=== PATIENT | female | born 1995 | race Two or more races ===

== ENCOUNTER 2016-10-16 11:06 | Inpatient (IN) | payer OTHER ==
[~2016-10-16] VITALS: Ht 160 cm; Wt 64.0 kg
[2016-10-20] MEDS ORDERED: LIDOCAINE 1%, 20ML ONE (07:06)
[2016-10-20] MEDS ORDERED: NEWBORN KIT ONE (07:06)
[2016-10-20] MEDS ORDERED: IBUPROFEN 600 MG TABLET ONE (07:06)
[2016-10-20] MEDS ORDERED: OXYTOCIN 30U/ 0.9% NaCL 500ML 500 ML ONE (07:06)
[2016-10-20] MEDS ORDERED: MISOPROSTOL 200 MCG TABLET ONE (07:06)
[2016-10-20] MEDS ORDERED: OXYTOCIN 30U/ 0.9% NaCL 500ML 500 ML IV PRN (07:11)
[2016-10-20] MEDS ORDERED: OXYTOCIN 30U/ 0.9% NaCL 500ML 500 ML IV ONE (07:11)
[2016-10-20] MEDS: LACTATED RINGERS 1,000 ML IV SCH ×4 (07:19→23:11)
[2016-10-20] MEDS ORDERED: CALCIUM CARBONATE 500 MG TAB.CHEW PO PRN (07:30)
[2016-10-20] MEDS ORDERED: SODIUM CITRATE/CITRIC ACID 30 ML UDC PO PRN (07:30)
[2016-10-20] MEDS ORDERED: ALUMINUM/MAG/SIMETHICONE 30 ML UDC PO PRN (07:30)
[2016-10-20] MEDS ORDERED: ONDANSETRON 2MG/ML, 2ML IVPush PRN (07:30)
[2016-10-20] MEDS ORDERED: TERBUTALINE 1 MG/ML, 1ML IVPush PRN (07:30)
[2016-10-20] MEDS ORDERED: FENTANYL PF 100 MCG/2ML IVPush PRN (07:30)
[2016-10-20 08:07] LABS: HEMOGLOBIN 14.4 g/dL (11.7-16.4)
[2016-10-20] MEDS ORDERED: ONDANSETRON 2MG/ML, 2ML ONE (15:25)
[2016-10-20] MEDS ORDERED: FENTANYL/BUPIV./NS/PF 250 ML EPIDCONT SCH (16:29)
[2016-10-20] MEDS ORDERED: LACTATED RINGERS 1,000 ML IVBOLUS PRN (16:30)
[2016-10-20] MEDS ORDERED: NALOXONE 0.4 MG/ML, 1ML IVPush PRN (16:30)
[2016-10-20] MEDS ORDERED: FENTANYL/BUPIV./NS/PF 250 ML EPIDCONT ONE (16:32)
[2016-10-20] MEDS ORDERED: BUPIVACAINE/PF 0.25% ONE (16:32)
[2016-10-21] MEDS: LACTATED RINGERS 1,000 ML IV SCH (00:29)
[2016-10-21] MEDS ORDERED: OXYTOCIN 30U/ 0.9% NaCL 500ML 500 ML ONE (02:37)
[2016-10-21] MEDS ORDERED: MISOPROSTOL 200 MCG TABLET ONE (02:38)
[2016-10-21] MEDS: OXYTOCIN 30U/ 0.9% NaCL 500ML 500 ML IV SCH ×2 (02:44→12:44)
[2016-10-21] MEDS ORDERED: MISOPROSTOL 200 MCG TABLET PR PRN (03:00)
[2016-10-21] MEDS ORDERED: CARBOPROST TROMETHAMINE 250 MCG/ML, 1ML IM PRN (03:00)
[2016-10-21] MEDS ORDERED: METHYLERGONOVINE 0.2 MG/ML IM PRN (03:00)
[2016-10-21] MEDS ORDERED: OXYTOCIN 10 UNITS/ML, 1ML IM PRN (03:00)
[2016-10-21] MEDS ORDERED: AMPICILLIN 2 GM IM ONE (03:00)
[2016-10-21] MEDS ORDERED: OXYcodone/APAP 5/325MG TABLET PO PRN ×2 (03:00)
[2016-10-21] MEDS ORDERED: ACETAMINOPHEN 325 MG TABLET PO PRN (03:00)
[2016-10-21] MEDS ORDERED: ONDANSETRON 2MG/ML, 2ML IV PRN (03:00)
[2016-10-21] MEDS: IBUPROFEN 600 MG TABLET PO PRN ×2 (05:36→15:52)
[2016-10-21 05:40] VITALS: BP 112/69
[2016-10-21 08:10] VITALS: BP 105/67
[2016-10-21] MEDS: DOCUSATE 100 MG CAPSULE PO PRN ×2 (08:22→20:37)
[2016-10-21] MEDS: PRENATAL VIT/IRON/FA 1 EACH TABLET PO SCH (08:22)
[2016-10-21 12:15] VITALS: BP 92/62
[2016-10-21 16:10] VITALS: BP 111/74
[2016-10-21] MEDS ORDERED: DIPH,PERTUSS(ACELL),TET VAC/PF NC IM-VACC ONE (18:00)
[2016-10-21 20:00] VITALS: BP 117/80
[2016-10-22] MEDS ORDERED: OXYC-302 PO (07:12)
[2016-10-22] MEDS ORDERED: IBUP-1222 PO (07:13)
[2016-10-22] MEDS ORDERED: SENN8.6T4 PO (07:14)
[2016-10-22] MEDS: PRENATAL VIT/IRON/FA 1 EACH TABLET PO SCH (07:42)
[2016-10-22 07:50] VITALS: BP 114/69
== END 2016-10-22 11:45 | disposition home or self-care (01) | DRG 775 ==
LOC: LDIP 10-20 06:09 → 2NW 10-21 05:05
PROVIDERS: ADMIT Obstetrics & Gynecology; ATTEND Obstetrics & Gynecology
PROC: 10D07Z6 Extraction of Products of Conception, Vacuum, Via Natural or Artificial Opening (ICD-10-PCS; principal; 2016-10-21)
PROC: 0UBMXZZ Excision of Vulva, External Approach (ICD-10-PCS; 2016-10-21)
PROC: 10907ZC Drainage of Amniotic Fluid, Therapeutic from Products of Conception, Via Natural or Artificial Opening (ICD-10-PCS; 2016-10-21)
PROC: 0HQ9XZZ Repair Perineum Skin, External Approach (ICD-10-PCS; 2016-10-21)
PROC: 3E0R3CZ (ICD-10-PCS; 2016-10-21)
PROC: 00HU33Z Insertion of Infusion Device into Spinal Canal, Percutaneous Approach (ICD-10-PCS; 2016-10-21)
DX: O76 Abnormality in fetal heart rate and rhythm complicating labor and delivery (principal); O41.1230 Chorioamnionitis, third trimester, not applicable or unspecified; O99.72 Diseases of the skin and subcutaneous tissue complicating childbirth; L91.8 Other hypertrophic disorders of the skin; O70.0 First degree perineal laceration during delivery; O48.0 Post-term pregnancy; O77.0 Labor and delivery complicated by meconium in amniotic fluid; O69.3XX0 Labor and delivery complicated by short cord, not applicable or unspecified; Z37.0 Single live birth; Z3A.40 40 weeks gestation of pregnancy; Z23 Encounter for immunization
CPT/HCPCS: 36415; 82803; 85025; 86850; 86900; 90715; J0290; J2405; J2590; J3010; J7120